=== PATIENT | male | born 1965 | race African-American/Black ===

== ENCOUNTER 2016-03-06 10:01 | Emergency (ER) | payer BC ==
[2016-03-06 11:27] VITALS: BP 120/84
--- NOTE | 2016-03-06 12:53 | UC ---
Complaint Male HPI - HPI Summary HPI Summary: has had dysuria and increased frequency of urination the past few days. no fever , back pain or low abdominal pain. - History of Current Complaint Chief Complaint: UCGU Stated Complaint: URINARY Time Seen by Provider: 03/06/16 12:43 Hx Obtained From: Patient Onset/Duration: Sudden Onset, Lasting Days Timing: Intermittent Severity Initially: Mild Severity Currently: Moderate Pain Intensity: 5 Pain Scale Used: 0-10 Numeric Location: Penis Character: Burning Aggravating Factor(s): Voiding Alleviating Factor(s): Nothing Associated Signs And Symptoms: Positive: Dysuria - Allergies/Home Medications Allergies/Adverse Reactions: Allergies Allergy/AdvReac Type Severity Reaction Status Date / Time No Known Allergies Allergy Verified 03/06/16 11:27 PMH/Surg Hx/FS Hx/Imm Hx Previously Healthy: Yes - Surgical History Surgical History: None - Family History Known Family History: Positive: Other - dad has BPH - Social History Alcohol Use: Rare Substance Use Type: None Smoking Status (MU): Never Smoked Tobacco Review of Systems Constitutional: Negative Skin: Negative Eyes: Negative ENT: Negative Respiratory: Negative Cardiovascular: Negative Gastrointestinal: Negative Genitourinary: Dysuria, Frequency Motor: Negative Neurovascular: Negative Musculoskeletal: Negative Neurological: Negative Psychological: Negative All Other Systems Reviewed And Are Negative: Yes Physical Exam Triage Information Reviewed: Yes Appearance: No Pain Distress, Well-Nourished, Ill-Appearing Vital Signs: Initial Vital Signs Temp 98.3 F 03/06/16 11:23 Pulse 88 03/06/16 11:23 Resp 14 03/06/16 11:23 BP 120/84 03/06/16 11:23 Pulse Ox 99 03/06/16 11:23 Vital Signs Reviewed: Yes Eye Exam: Normal Eyes: Positive: Conjunctiva Clear ENT Exam: Normal ENT: Positive: Normal ENT inspection, Pharynx normal, TMs normal Dental Exam: Normal Neck exam: Normal Neck: Positive: Supple, Nontender, No Lymphadenopathy Respiratory Exam: Normal Respiratory: Positive: Chest non-tender, Lungs clear, Normal breath sounds Cardiovascular Exam: Normal Cardiovascular: Positive: RRR, No Murmur, Pulses Normal Abdominal Exam: Normal - no cva tenderness Abdomen Description: Positive: Nontender, No Organomegaly, Soft Bowel Sounds: Positive: Present Musculoskeletal Exam: Normal Musculoskeletal: Positive: Strength Intact, ROM Intact, No Edema Neurological Exam: Normal Neurological: Positive: Alert, Muscle Tone Normal Psychological Exam: Normal Skin Exam: Normal Complaint Male Course/Dx - Course Course Of Treatment: history obtained, exam performed, medication presribed. - Differential Dx/Diagnosis Differential Diagnosis/HQI/PQRI: Prostatitis, Ureteral Calculi, Urinary Tract Infection Provider Diagnoses: uti Discharge - Discharge Plan Condition: Stable Disposition: HOME Patient Education Materials: Urinary Tract Infection in Men (ED) Additional Instructions: Take medication as prescribed. Your urine was sent for culture, we will call if we need to change your antibiotic. Increase fluid intake. follow up if symptoms increase even with treatment.
== END 2016-03-06 13:01 | disposition home or self-care (01) ==
LOC: UCCORT 10:01
DX: N39.0 Urinary tract infection, site not specified (principal)
CPT/HCPCS: 87077; 87086; 87186; 99202; G0463